=== PATIENT | female | born 1985 | race Caucasian/White ===

== ENCOUNTER → 2016-10-26 | Outpatient (CLI) | payer BC ==
--- NOTE | 2016-10-27 09:41 | REP ---
LEFT BREAST ULTRASOUND: Real-time sonographic evaluation of the left breast is performed at the site of a reported palpable abnormality at 8 -o'clock position to 9 -o'clock position in the left breast. There is dense fibroglandular tissue. There is no cystic or solid nodule at that location. At 6 -o'clock position, however, is a subcutaneous cystic structure measuring 5 x 2 x 4 mm probably representing a sebaceous cyst. There are internal echoes. Underlying saline breast implant demonstrates no evidence of rupture. IMPRESSION: ACR 2 benign. No suspicious mass. Only dense fibroglandular tissue is seen at the 8 -o'clock position to 9 -o'clock position of the left breast at the site of the reported palpable abnormality. At 6 -o'clock position, incidental note is made of a tiny complex subcutaneous cyst. Underlying breast implant intact. Signed by Fermín Huffman MD 10/27/2016 05:19 P
== END ==
LOC: M RAD 17:29
PROVIDERS: ATTEND Nurse Practitioner Women's Health
DX: N63 Unspecified lump in breast (principal)

== ENCOUNTER → 2017-03-08 | Outpatient (CLI) | payer BC | LOC: M RAD 16:29 | PROVIDERS: ATTEND Plastic Surgery | DX: Z12.31 Encounter for screening mammogram for malignant neoplasm of breast (principal); Z53.9 Procedure and treatment not carried out, unspecified reason ==

== ENCOUNTER → 2017-03-14 | Outpatient (CLI) | payer BC ==
--- NOTE | 2017-03-14 16:39 | REP ---
Digital diagnostic bilateral mammography with CAD and focused left breast sonography: History: Left breast lump with pain. Comparison sonography 10/26/2016 for these same symptoms. No prior mammography. Findings: Implant displaced and implant included views were obtained. A skin marker is affixed to the skin at the site of the palpable lump in the left breast and magnified views are obtained. Findings: Heterogeneous fibroglandular dense tissue is seen. There is no evidence of mass at the site of the palpable lump in the left breast or elsewhere on either side. No spiculation or microcalcification is seen. Saline implant margins are smooth and appear intact bilaterally. No suspicious microcalcification. Sonographic findings: The left breast is scanned at the area of the palpable lump directly adjacent to the nipple. Heterogeneous fibroglandular background echotexture is seen. No cyst or solid lesion is observed. Visualized implant margins are smooth. Impression: BIRADS category II benign bilateral breast imaging. This negative report should not dissuade one from biopsy of a palpable lump depending on its clinical characteristics. Clinical follow-up is advised. This mammogram was interpreted with the aid of an FDA-approved computer-aided detection system. The patient states she had a clinical breast exam in February 2017. The patient letter being requested is M2, dense. Signed by Dada Saucedo MD 03/15/2017 05:06 P
== END ==
LOC: M RAD 14:39
PROVIDERS: ATTEND Plastic Surgery
DX: N63 Unspecified lump in breast (principal)
CPT/HCPCS: 76642; G0204

== ENCOUNTER → 2019-03-13 | Outpatient (REF) | payer BC ==
[2019-03-13 19:12] LABS: FREE THYROXINE INDEX 2.7 % (1.3-4.8); HCG, SERUM QUANTITATIVE < 1.0 MIU/ML; T UPTAKE 35 % (30-39); THYROID STIMULATING HORMONE 0.865 uIU/ML (0.358-3.740); THYROXINE (T4) 7.8 UG/DL (4.5-12.0)
== END ==
LOC: M LAB REF 17:51
PROVIDERS: ATTEND Nurse Practitioner Women's Health
DX: N92.6 Irregular menstruation, unspecified (principal)

== ENCOUNTER → 2019-03-23 | Outpatient (REF) | payer BC ==
[2019-03-23 15:39] LABS: BASO % 0.6 % (0.0-1.0); EOS # 0.1 10^3/uL (0.0-0.50); EOS % 1.9 % (0.0-3.0); HEMATOCRIT 41.5 % (36.0-47.0); HEMOGLOBIN 13.6 g/dl (12.0-15.5); LYMPH # 1.5 10^3/uL (1.5-4.5); LYMPH % 28.3 % (24.0-44.0); MEAN CORPUSCULAR HEMOGLOBIN 31.9 pg (27.0-33.0); MEAN CORPUSCULAR HGB CONC 32.8 g/dl (32.0-36.5); MEAN CORPUSCULAR VOLUME 97.2 fl (80.0-96.0); MONO # 0.4 10^3/uL (0.0-0.8); MONO % 7.1 % (0.0-5.0); NEUTROPHILS # 3.3 10^3/uL (1.8-7.7); NEUTROPHILS % 61.7 % (36.0-66.0); PLATELET COUNT, AUTOMATED 256 10^3/uL (150-450); RED BLOOD COUNT 4.27 10^6/uL (4.00-5.40); WHITE BLOOD COUNT 5.4 10^3/uL (4.0-10.0)
[2019-03-23 15:52] LABS: ALBUMIN 3.6 GM/DL (3.2-5.2); ALT/SGPT 62 U/L (12-78); BILIRUBIN,TOTAL 0.3 MG/DL (0.2-1.0); BLOOD UREA NITROGEN 16 MG/DL (7-18); CALCIUM LEVEL 8.7 MG/DL (8.5-10.1); CARBON DIOXIDE LEVEL 26 MEQ/L (21-32); CHLORIDE LEVEL 106 MEQ/L (98-107); CHOLESTEROL LEVEL 217 MG/DL (<200); CHOLESTEROL RISK RATIO 2.552 (<5); CREATININE FOR GFR 0.85 MG/DL (0.55-1.30); FERRITIN 22 NG/ML (8-252); FREE T4 1.08 NG/DL (0.76-1.46); GLOMERULAR FILTRATION RATE > 60.0 (>60); GLUCOSE, FASTING 81 MG/DL (70-100); HDL CHOLESTEROL 85 MG/DL (>40); IRON (FE) 78 UG/DL (50-170); LDL CHOLESTEROL 116 MG/DL (<100); NON-HDL-C 132 MG/DL; PERCENT SATURATION 20.4 % (13.2-45.0); POTASSIUM SERUM 4.9 MEQ/L (3.5-5.1); SODIUM LEVEL 139 MEQ/L (136-145); TOTAL IRON BINDING CAPACITY 383 UG/DL (250-450); TOTAL PROTEIN 7.2 GM/DL (6.4-8.2); TRIGLYCERIDES LEVEL 78 MG/DL (<150)
[2019-03-23 17:04] LABS: TOTAL 25(OH) VITAMIN D 36.1 NG/ML (30.0-100.0)
[2019-03-23 17:05] LABS: VITAMIN B12 LEVEL 762 PG/ML (247-911)
== END ==
LOC: M SFHCSACK 09:29
PROVIDERS: ATTEND Physician Assistant
DX: Z13.220 Encounter for screening for lipoid disorders (principal); Z13.29 Encounter for screening for other suspected endocrine disorder; Z13.21 Encounter for screening for nutritional disorder; Z86.2 Personal history of diseases of the blood and blood-forming organs and certain disorders involving the immune mechanism

== ENCOUNTER → 2022-08-23 | Outpatient (REF) | payer BC | LOC: M LAB REF 17:50 | PROVIDERS: ATTEND Internal Medicine Endocrinology, Diabetes & Metabolism | DX: E04.1 Nontoxic single thyroid nodule (principal) ==

== ENCOUNTER → 2022-12-05 | Outpatient (CLI) | payer BC ==
[~2022-12-05] MED LIST: ATOM40CA9 PO
== END ==
LOC: M LABSMTC 09:42
PROVIDERS: ATTEND Anesthesiology
DX: Z01.812 Encounter for preprocedural laboratory examination (principal); Z11.52 Encounter for screening for COVID-19

== ENCOUNTER 2022-12-08 10:03 | Day surgery (SDC) | payer BC ==
[~2022-12-08] VITALS: Ht 162.6 cm; Wt 71.2 kg
[~2022-12-08 10:03] MED LIST changes: +ACETAMINOPHEN *IV* 1,000 MG IV ONE; +LIDOCAINE 2% 100MG/5ML SDV (FOR ANES.) As Ordered ONE; +LR 1,000 ML IV SCH; +MIDAZOLAM INJ 2MG/2ML VIAL As Ordered ONE; +fentaNYL 100 MCG/2 ML INJECTION As Ordered ONE; +propofoL 200 MG/20 ML VIAL As Ordered ONE
[2022-12-08 10:31] LABS: HEMATOCRIT 38.3 % (36.0-47.0); HEMOGLOBIN 12.2 g/dl (12.0-15.5); MEAN CORPUSCULAR HEMOGLOBIN 29.5 pg (27.0-33.0); MEAN CORPUSCULAR HGB CONC 31.9 g/dl (32.0-36.5); MEAN CORPUSCULAR VOLUME 92.7 fl (80.0-96.0); PLATELET COUNT, AUTOMATED 272 10^3/uL (150-450); RED BLOOD COUNT 4.13 10^6/uL (4.00-5.40); WHITE BLOOD COUNT 5.5 10^3/uL (4.0-10.0)
[2022-12-08] MEDS ORDERED: LR 1,000 ML IV SCH ×2 (10:40→13:55)
[2022-12-08] MEDS ORDERED: CEFD300C41 (10:43)
[2022-12-08] MEDS ORDERED: ONDANSETRON 4MG 2ML VIAL IV PRN (13:55)
[2022-12-08] MEDS ORDERED: fentaNYL 100 MCG/2 ML INJECTION IV PRN (13:55)
[2022-12-08] MEDS ORDERED: HYDROMORPHONE HCL 0.5 MG/ 0.5 ML SYRINGE IV PRN (13:55)
[2022-12-08] MEDS ORDERED: oxyCODONE 5MG TAB PO PRN (13:55)
[2022-12-08] MEDS ORDERED: PERCOCET 5MG/325MG TAB PO PRN (14:20)
[2022-12-08 15:06] VITALS: BP 126/80
[2022-12-08] MEDS ORDERED: IBUPROFEN 800 MG TAB PO SCH (18:00)
== END 2022-12-08 15:08 | disposition home or self-care (01) ==
LOC: M SDC 10:03
PROVIDERS: ATTEND Obstetrics & Gynecology
DX: N92.1 Excessive and frequent menstruation with irregular cycle (principal); K59.00 Constipation, unspecified; F41.9 Anxiety disorder, unspecified; F90.9 Attention-deficit hyperactivity disorder, unspecified type; Z79.899 Other long term (current) drug therapy
CPT/HCPCS: 36415; 58356; 81025; 85027; 86850; 86900; 86901; 88305; J1100; J2250; J3010

== ENCOUNTER → 2023-01-11 | Outpatient (CLI) | payer BC ==
[~2023-01-11] MED LIST changes: -ACETAMINOPHEN *IV* 1,000 MG IV ONE; +CEFD300C41; -LIDOCAINE 2% 100MG/5ML SDV (FOR ANES.) As Ordered ONE; -LR 1,000 ML IV SCH; -MIDAZOLAM INJ 2MG/2ML VIAL As Ordered ONE; -fentaNYL 100 MCG/2 ML INJECTION As Ordered ONE; -propofoL 200 MG/20 ML VIAL As Ordered ONE
[2023-01-11 18:11] LABS: THYROXINE (T4) 7.2 UG/DL (4.5-10.9)
[2023-01-11 18:12] LABS: FREE THYROXINE INDEX 2.3 % (1.3-4.8); T UPTAKE 32.2 % (22.5-37.0)
[2023-01-11 18:13] LABS: ALBUMIN 3.8 G/DL (3.2-5.2); ALKALINE PHOSPHATASE 62 U/L (46-116); ALT/SGPT 22 U/L (7.0-40); AST/SGOT 22 U/L (<34); BILIRUBIN,TOTAL 0.3 MG/DL (0.3-1.2); BLOOD UREA NITROGEN 13 MG/DL (9-23); CALCIUM LEVEL 9.4 MG/DL (8.5-10.1); CARBON DIOXIDE LEVEL 31 MMOL/L (20-31); CHLORIDE LEVEL 102 MMOL/L (98-107); CREATININE FOR GFR 0.62 MG/DL (0.55-1.30); GLOMERULAR FILTRATION RATE > 60.0 (>60); GLUCOSE, FASTING 80 MG/DL (60-100); POTASSIUM SERUM 4.3 MMOL/L (3.5-5.1); SODIUM LEVEL 138 MMOL/L (136-145); TOTAL PROTEIN 6.9 G/DL (5.7-8.2)
== END ==
LOC: M LAB 16:31
PROVIDERS: ATTEND Physician Assistant
DX: R53.83 Other fatigue (principal)

== ENCOUNTER → 2023-12-08 | Outpatient (CLI) | payer BC ==
[~2023-12-08] MED LIST changes: +CEFD1CAP9; -CEFD300C41
== END ==
LOC: M WHC 09:06
PROVIDERS: ATTEND Obstetrics & Gynecology
DX: N92.6 Irregular menstruation, unspecified (principal); N93.0 Postcoital and contact bleeding; N83.202 Unspecified ovarian cyst, left side; R93.89 Abnormal findings on diagnostic imaging of other specified body structures

== ENCOUNTER → 2024-01-25 | Outpatient (CLI) | payer BC | LOC: M RAD 13:21 | PROVIDERS: ATTEND Obstetrics & Gynecology | DX: N83.202 Unspecified ovarian cyst, left side (principal); D25.1 Intramural leiomyoma of uterus; N88.8 Other specified noninflammatory disorders of cervix uteri; N83.201 Unspecified ovarian cyst, right side ==

== ENCOUNTER → 2024-06-12 | Outpatient (CLI) | payer BC ==
[2024-06-12 11:03] LABS: HEMATOCRIT 41.3 % (36.0-47.0); HEMOGLOBIN 13.9 g/dl (12.0-15.5); MEAN CORPUSCULAR HEMOGLOBIN 31.4 pg (27.0-33.0); MEAN CORPUSCULAR HGB CONC 33.7 g/dl (32.0-36.5); MEAN CORPUSCULAR VOLUME 93.2 fl (80.0-96.0); PLATELET COUNT, AUTOMATED 300 10^3/uL (150-450); RED BLOOD COUNT 4.43 10^6/uL (4.00-5.40); WHITE BLOOD COUNT 5.2 10^3/uL (4.0-10.0)
[2024-06-12 11:31] LABS: ALBUMIN 3.8 G/DL (3.2-5.2); ALKALINE PHOSPHATASE 57 U/L (46-116); ALT/SGPT 16 U/L (7.0-40); AST/SGOT 16 U/L (<34); BILIRUBIN,TOTAL 0.4 MG/DL (0.3-1.2); BLOOD UREA NITROGEN 14 MG/DL (9-23); CARBON DIOXIDE LEVEL 26 MMOL/L (20-31); CHLORIDE LEVEL 107 MMOL/L (98-107); CHOLESTEROL LEVEL 232 MG/DL (<200); CHOLESTEROL RISK RATIO 3.34 (<5); CREATININE FOR GFR 0.82 MG/DL (0.55-1.30); GLOMERULAR FILTRATION RATE > 60.0 (>58); GLUCOSE, FASTING 86 MG/DL (60-100); HDL CHOLESTEROL 69.4 MG/DL (>40); NON-HDL-C 162.6 MG/DL; SODIUM LEVEL 138 MMOL/L (136-145); TOTAL PROTEIN 7.2 G/DL (5.7-8.2); TRIGLYCERIDES LEVEL 68 MG/DL (<150)
[2024-06-12 11:33] LABS: THYROID STIMULATING HORMONE 1.132 uIU/ML (0.55-4.78)
== END ==
LOC: M LAB 10:18
PROVIDERS: ATTEND Physician Assistant
DX: E78.5 Hyperlipidemia, unspecified (principal); F90.2 Attention-deficit hyperactivity disorder, combined type; F33.1 Major depressive disorder, recurrent, moderate

== ENCOUNTER → 2024-09-27 | Outpatient (CLI) | payer BC | LOC: M WHC 13:59 | PROVIDERS: ATTEND Obstetrics & Gynecology | DX: Z12.31 Encounter for screening mammogram for malignant neoplasm of breast (principal); R92.343 Mammographic extreme density, bilateral breasts; Z98.82 Breast implant status; N64.4 Mastodynia ==